=== PATIENT | female | born 1960 | race Caucasian/White ===

== ENCOUNTER 2016-11-10 21:53 | Emergency (ER) | payer BC | END 2016-11-11 00:45 | disposition home or self-care (01) | LOC: ER 21:53 | DX: S22.32XA Fracture of one rib, left side, initial encounter for closed fracture (principal); Z90.710 Acquired absence of both cervix and uterus; Z85.6 Personal history of leukemia; Z88.5 Allergy status to narcotic agent; W28.XXXA Contact with powered lawn mower, initial encounter | CPT/HCPCS: 71020; 71100-LT; 96372; 99284; J1170 ==